=== PATIENT | male | born 1930 | race Caucasian/White ===

== ENCOUNTER 2018-03-19 08:05 | Inpatient (IN) | payer MEDICARE, OTHER ==
[~2018-03-19] VITALS: Ht 170.2 cm; Wt 92.1 kg
[~2018-03-19 08:05] MED LIST: COREG6.25 MG PO; FLOMAX0.4 MG PO; GLUCOPHAGE500 MG PO; LISINOPRIL20 MG PO; OMEPRAZOLE 20 M20 M1 PO; ZOCOR20 MG PO
[2018-03-19] MEDS ORDERED: ASPIRIN325 PO (08:18)
[2018-03-19] MEDS ORDERED: PERCOCET PO (08:18)
[2018-03-19] MEDS ORDERED: PROCTOSOL-HC28.35 GM TOP (08:19)
[2018-03-19] MEDS ORDERED: IBUPROFEN 400400 M2 PO (08:20)
[2018-03-19] MEDS ORDERED: ZANTAC 150MG T150 MG PO (08:20)
[2018-03-19] MEDS ORDERED: PIOGLITAZONE15 MG (08:20)
[2018-03-19 08:28] LABS: ABSOLUTE EOSINOPHILS 0.1 thou/uL (0.0-0.7); ABSOLUTE LYMPHOCYTES 1.7 thou/uL (0.8-5.3); ABSOLUTE MONOCYTES 1.1 thou/uL (0.0-1.2); ABSOLUTE NEUTROPHILS 8.3 thou/uL (1.6-8.1); BASOPHILS 0.4 %; EOSINOPHILS 0.8 %; HEMATOCRIT 40.8 % (42.0-52.0); HEMOGLOBIN 13.3 gm/dL (14.0-18.0); MCH 30.6 pg (26.0-34.0); MCHC 32.7 g/dL (28.0-37.0); MCV 93.4 fL (80.0-100.0); MONOCYTES 9.6 %; MPV 7.7 fl. (7.2-11.1); NUCLEATED RBCS 0 /100WBC; PLATELET COUNT* 144 thou/uL (150-400); POLYS 74.2 %; RBC 4.36 mil/uL (4.50-6.00); WBC 11.2 thou/uL (4.0-11.0)
[2018-03-19] MEDS ORDERED: CENTRUM SILVER1 EAC2 PO (08:31)
[2018-03-19] MEDS ORDERED: FIBRICOR35 MG PO (08:32)
[2018-03-19 08:37] LABS: ANION GAP 10 mmol/L (7-16); BUN 28 mg/dL (7-18); CALCIUM 8.6 mg/dL (8.5-10.1); CHLORIDE 102 mmol/L (98-107); CO2 25 mmol/L (21-32); CREATININE 1.4 mg/dL (0.6-1.3); GLUCOSE 127 mg/dL (70-99); POTASSIUM 4.2 mmol/L (3.5-5.1); SODIUM 137 mmol/L (136-145)
[2018-03-19 08:47] LABS: APTT 28.3 Seconds (25.0-31.3); INR 1.1; PROTIME 10.5 Seconds (9.20-11.50)
[2018-03-19 08:49] LABS: ALBUMIN 3.4 g/dL (3.4-5.0); ALKALINE PHOSPHATASE 41 U/L (46-116); CK-MB MASS < 0.5 ng/mL (<0.5-3.6); LIPASE 113 U/L (73-393); MAGNESIUM 1.4 mg/dL (1.8-2.4); NT-PRO BRAIN NAT PEPTIDE 91 pg/mL (<300); SGOT 16 U/L (15-37); SGPT 18 U/L (30-65); TOTAL BILIRUBIN 0.4 mg/dL (<0.1-1.0); TOTAL PROTEIN 6.6 g/dL (6.4-8.2); TROPONIN-I LEVEL <0.06 ng/mL (<0.06)
--- NOTE | 2018-03-19 11:37 | EKG ---
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 : 1930 Requested By: Kashmir Ayala Order Number: [id number] MD: Destin Graham Measurements Intervals [place] Rate: 96 P: 216 PA: 198 QRS: 100 QRSD: 130 T: 179 QT: 354 QTc: 448 Interpretive Statements Sinus or ectopic atrial rhythm Atrial premature complex incomplete RBBB Probable lateral infarct, age indeterminate Compared to ECG 11/22/2016 12:15:20 Ectopic atrial rhythm now present Atrial premature complex(es) now present Intraventricular conduction delay now present Electronically Signed On 03-19-2018 11:36:57 CDT by Destin Graham [email or web address] <ELECTRONICALLY SIGNED> By: Destin Graham MD, [facility] 03/19/18 1136 [id number] Destin Graham MD, [facility] /EPI
[2018-03-19 12:50] VITALS: BP 115/81
[2018-03-19] MEDS ORDERED: TYLENOL325 MG PO (13:48)
[2018-03-19 13:55] VITALS: BP 142/64
--- NOTE | 2018-03-19 13:59 | NUR ---
PT ADMITTED AROUND 1300 PT IS ALERT AND ORIENTED X 4 PT DENIES PAIN STATES MORE SORENESS DISCOMFORT PT DENIES SOA ON 2L/NC, PT IS UP WITH ASSIST X 1 WITH CANE AND O2 TO BEDSIDE COMMODE PT IS A FALL RISK BED ALARM IS ON, VSS, PT HAS FAMILY IN ROOM PT IS PLEASANT AND COOPERATIVE, PT ARMS HAVE TREMORS, WILL CONTINUE TO MONITOR
[2018-03-19 16:23] VITALS: BP 149/71
[2018-03-19 20:00] VITALS: BP 120/63
[2018-03-20] VITALS: BP 113/60
[2018-03-20 04:00] VITALS: BP 111/60
--- NOTE | 2018-03-20 05:31 | NUR ---
PATIENT RESTED IN BED. EKG DONE, EKG STATES ACUTE MD. PATIENT COMPLAINED OF CHEST PAIN, DOCTOR ANNE NOTIFIED. DOCTOR ANNE ORDERED SUBLIGINAL NITRO AND A CARDIO CONSULT. NITRO GIVEN, AFTER ONE TABLET, PAIN WAS COMPLETLY RELIEVED. CARDIOLOGY WAS NOTIFIED OF CONSULT. DOCTOR NORIEGA NOTIFIED, THE DOCTOR ORDERED LOVENOX, AND NITRO, SEE ORDERS. PATIENT LATER COMPLAINED OF AB PAIN, TREATED WITH TYLENOL. PAIN WAS COMPLETLY RELIEVED. PATIENT IS NPO DUE TO CARDIOLOGY ORDER. PATIENT VITALS ARE STABLE.
--- NOTE | 2018-03-20 06:03 | NUR ---
CALL TO DOCTOR FULBRIGHT REGARDING MAG LEVEL AND PATIENT REQUEST FOR STOOL SOFTENER. WAITING FOR RESPONSE.
--- NOTE | 2018-03-20 06:41 | NUR ---
DOCTOR RETURNED CALL, SEE ORDERS. AND MARIE ORDERED.
[2018-03-20 09:00] VITALS: BP 131/71
[2018-03-20 12:00] VITALS: BP 105/51
[2018-03-20 13:36] LABS: ABSOLUTE LYMPHOCYTES 1.3 thou/uL (0.8-5.3); ABSOLUTE MONOCYTES 1.1 thou/uL (0.0-1.2); ABSOLUTE NEUTROPHILS 5.1 thou/uL (1.6-8.1); BASOPHILS 0.4 %; EOSINOPHILS 0.4 %; HEMATOCRIT 40.4 % (42.0-52.0); HEMOGLOBIN 13.3 gm/dL (14.0-18.0); LYMPHOCYTES 17.8 %; MCH 31.1 pg (26.0-34.0); MCHC 32.8 g/dL (28.0-37.0); MCV 94.6 fL (80.0-100.0); MPV 8.4 fl. (7.2-11.1); NUCLEATED RBCS 0 /100WBC; PLATELET COUNT* 132 thou/uL (150-400); POLYS 67.4 %; RBC 4.28 mil/uL (4.50-6.00); RDW-CV 13.9 % (10.5-14.5); WBC 7.6 thou/uL (4.0-11.0)
[2018-03-20 13:42] LABS: CALCIUM 9.3 mg/dL (8.5-10.1); CREATININE 1.4 mg/dL (0.6-1.3); POTASSIUM 4.1 mmol/L (3.5-5.1)
[2018-03-20 14:30] LABS: URINE BILIRUBIN NEGATIVE (Negative); URINE BLOOD NEGATIVE (Negative); URINE CLARITY CLEAR; URINE COLOR YELLOW; URINE GLUCOSE-RANDOM NEGATIVE (Negative); URINE KETONES NEGATIVE (Negative); URINE LEUKOCYTES TRACE (Negative); URINE NITRITE NEGATIVE (Negative); URINE PROTEIN NEGATIVE (Negative); URINE SPECIFIC GRAVITY 1.015 (1.005-1.030); URINE UROBILINOGEN 0.2 E.U./dl (0.2-1.0)
--- NOTE | 2018-03-20 14:45 | EKG ---
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: : 1930 Requested By: Kashmir Ayala Order Number: [id number] MD: Destin Graham Measurements Intervals [place] Rate: 101 P: 16 PA: 195 QRS: 74 QRSD: 107 T: 20 QT: 331 QTc: 429 Interpretive Statements Sinus tachycardia Atrial premature complexes Sinus pause incomplete RBBB nonspecific st changes Baseline wander in lead(s) V6 Compared to ECG 03/19/2018 08:09:29 Sinus pause or arrest now present Myocardial infarct finding still present Electronically Signed On 03-20-2018 14:45:34 CDT by Destin Graham [email or web address] <ELECTRONICALLY SIGNED> By: Destin Graham MD, [facility] 03/20/18 1445 1407 1407 Destin Graham MD, [facility] /EPI
[2018-03-20 14:48] LABS: BACTERIA 1-9 Few /HPF (None Seen); URINE RBC 0-2 Rare /HPF (0-2)
[2018-03-20 14:49] LABS: AMORPHOUS URATES Few /LPF (None Seen); CASTS None Seen /LPF (None Seen); SQUAMOUS 0-3 Few /LPF (0-3); URINE WBC 0-5 Rare /HPF (0-5)
--- NOTE | 2018-03-20 14:51 | EKG ---
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: [facility] : 1930 Requested By: Kashmir Ayala Order Number: [id number] Reading MD: Destin Graham Measurements Intervals [place] Rate: 83 P: 30 CA: 200 QRS: 78 QRSD: 114 T: 34 QT: 357 QTc: 420 Interpretive Statements Sinus rhythm Abnormal R-wave progression, early transition Inferior infarct Lateral leads are also involved Compared to ECG 03/19/2018 08:09:29 Atrial premature complex(es) no longer present Myocardial infarct finding still present Electronically Signed On 03-20-2018 14:51:34 CDT by Destin Graham [email or web address] <ELECTRONICALLY SIGNED> By: Destin Graham MD, [facility] 03/20/18 1451 58 58 Destin Graham MD, [facility] /EPI
[2018-03-20 16:00] VITALS: BP 130/68
--- NOTE | 2018-03-20 16:15 | NUR ---
ASSUMED PT CARE AT 0700 PT IS ALERT AND ORIENTED X 4 PT IS UNSTEADY ON FEET AND IS ON 2L/NC PT EDUCATED TO USE BEDSIDE COMMODE FOR TOLIETING PT AND FAMILY STATES UNDERSTANDING, PT DENIES PAIN, CARDIOLOGY SAW PT ORDERED ECHO FOR TOMORROW, PT IS SA ON THE MONITOR, UROLOGY CONSULTED FOR POSSIBLE KIDNEY STONE NEW ORDERS FOR UA FLOMAX STRAIN URINE AND KUB ORDERED, UA OBTAINED AND URINE IS STRAINED, PT AROUND 1600 C/O STOMACH UPSET PT DENIES PAIN INCLUDING CHEST PAIN PT STATES IT'S NAUSEA GAVE ZOFRAN, WILL CONTINUE TO MONITOR
--- NOTE | 2018-03-20 16:18 | CON ---
[facility] [address] [place] [address] CONSULTATION Name: SULMA GARCIA Room: [address] IN [facility].#: [id number] Admission: 03/19/18 Attend Phys: Reid Holden Discharge: Date of : 10/17/[birth year] Report #: [id number] THIS REPORT FOR: //name// CC: NATI Casas DATE OF SERVICE: 03/20/2018 HISTORY OF PRESENT ILLNESS: The patient is an 87-year-old white male who I was asked to see in the hospital today after he complained of chest pain. The old records are not available on the patient. He actually was admitted here in 11/2016 with dizziness and kidney stone. He does state that he has had a long history of hypertension, diabetes and hyperlipidemia. He actually saw a telecommunications administrator in [place], [place] a couple of years ago and apparently was placed on Coreg, which he still takes twice a day. The patient is not very active because of his age. He has to use a cane. He was brought to the Emergency Room yesterday morning with a constant, sharp chest pain. There is no radiation of the pain. It is worse when he took a deep breath or cough. He denied the pain radiating to his arms or jaw. He denies any associated shortness of breath, diaphoresis or nausea. He denied any recent pain being related to swallowing her food. He had no blood in stool. He denies any recent fever. He denies recent trauma to his chest or rash. He denies any exertional dyspnea. He does note occasional flutter in his chest. He has had no syncope. He has had no edema. PAST MEDICAL HISTORY: Otherwise significant for bilateral knee surgery, cholecystectomy, kidney stone removal, cataract extraction, hypertension, diabetes, hyperlipidemia. CURRENT MEDICATIONS: Consist of aspirin, fenofibrate, omeprazole, simvastatin, metformin, lisinopril, carvedilol. He previously had been on Flomax, Actos. ALLERGIES: He has no known drug allergies. FAMILY HISTORY: Negative for heart disease. SOCIAL HISTORY: He is . He and his live in [place], [place]. 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 Quit smoking years ago. Occasionally drinks alcohol. REVIEW OF SYSTEMS: He has had no history of stroke, asthma, peptic ulcer disease, liver disease, cancer, psychiatric illness. PHYSICAL EXAMINATION: GENERAL: Revealed an elderly slow moving white [place] [address] CONSULTATION Name: SULMA GARCIA Room: [address]#: [id number] Admission: 03/19/18 Attend Phys: Reid Holden Discharge: Date of : [birth year]17[birth year] Report #: [id number]. VITAL SIGNS: He had a blood pressure of 130/70, his pulse is 90, he is afebrile. HEENT: He is anicteric. Conjunctivae pink. Mucous members appear dry. NECK: Veins nondistended. No carotid bruits. Neck is supple. CHEST: Clear to auscultation. CARDIOVASCULAR: Regular rate and rhythm, no murmur or rub. ABDOMEN: Soft, nontender. EXTREMITIES: Had no edema. Dorsalis pedis pulse 2+ bilaterally. SKIN: Warm, dry. NEUROLOGIC: Nonfocal. LYMPH: No adenopathy. MUSCULOSKELETAL: No joint effusion. LABORATORY DATA: He had an ECG done by paramedics that showed a sinus rhythm with occasional PVCs including a pattern of bigeminy. He appeared to have a right bundle branch block. ECG after his arrival here to [facility] yesterday morning showed a sinus rhythm, possible previous inferior infarction with a right bundle branch block. Last night, the patient had another ECG that showed PVCs. There did appear to be some ST-segment elevation in lead 2, but no reciprocal ST-segment changes. His workup, he had a previous echocardiogram here at [facility] in 11/2016 that showed a normal ejection fraction, left ventricular hypertrophy, mild tricuspid insufficiency with severe pulmonary hypertension, PA pressure of 65 mmHg. His workup in the emergency room last night, he had portable chest x-ray that showed atelectasis, otherwise unremarkable. He underwent a CT scan of the abdomen without contrast because of his history of kidney stones that showed small renal stones, some pericardial effusion. His lab work, sodium 137, BUN 28, creatinine 1.4. His troponin, he has 3 sets, all 0.06. White blood cell count 11.2, hemoglobin 13.3. IMPRESSION AND RECOMMENDATIONS: 1. Chest pain. Atypical for angina. The patient does have risk factors. Symptoms do not suggest angina. ECG suggests a previous inferior infarction. Pericardial effusion noted on a CT scan. I do not hear a rub. Possible pericarditis. In light of his advanced age, recommend a conservative approach. I would recommend an echocardiogram. 2. Hypertension. The patient is on an HILL inhibitor and beta feliz. 3. Diabetes. 4. Hyperlipidemia. The patient is on a statin drug. 5. Chronic kidney disease. 6. History of kidney stone. <ELECTRONICALLY SIGNED> By: Nati Graham MD, [facility] 03/20/18 1618 0850 [id number] Graham MD, [facility] /nt
[2018-03-20 20:00] VITALS: BP 153/77
[2018-03-21 00:46] VITALS: BP 154/74
--- NOTE | 2018-03-21 02:42 | NUR ---
CALL TO DOCTOR SUDHOLT REGARDING PATIENT ELEVATED BLOOD SUGAR, SEE ORDERS.
--- NOTE | 2018-03-21 03:11 | NUR ---
PATIENT RESTED IN BED, NO ACUTE CHANGES. PATIENT DENIES PAIN, PATIENT DID NOT SHOW SIGNS OF DISTRESS. FALL PRECAUTIONS IN PLACE, BED ALARM ON, CALL LIGHT WITHIN REACH. NO STONES WERE NOTED IN URINE.
[2018-03-21 04:20] VITALS: BP 125/72
--- NOTE | 2018-03-21 06:21 | NUR ---
DOCTOR ALLEN NOTIFIED OF MAG AND SODIUM LEVEL, NO NEW ORDERS.
[2018-03-21 08:00] VITALS: BP 124/66
[2018-03-21 12:00] VITALS: BP 102/66
--- NOTE | 2018-03-21 13:23 | 2DMMODE ---
[place] [address] 2 D/M-MODE ECHOCARDIOGRAM Name: SULMA GARCIA Room: [address] IN [facility]#: [id number] Admission: 03/19/18 Attend Phys: Austyn Casas Discharge: Date of : 10/17/[birth year] Date of Service: 03/21/18 1323 Report #: [id number] THIS REPORT FOR: //name// APPROVED REPORT Study performed: 03/21/2018 11:44:34 EXAM: Comprehensive 2D, Doppler, and color-flow Echocardiogram Patient Location: In-Patient Room #: 218 Status: routine BSA: 2.05 HR: 74 bpm BP: 124/66 mmHg Rhythm: NSR Other Information Study Quality: Good Indications Abnormal ECG Chest Pain 2D Dimensions LVEF(%): 68.44 (>50%) IVSd: 10.98 (7-11mm) LVOT Diam: 20.58 (18-24mm) LVDd: 50.44 mm PWd: 10.21 (7-11mm) Ascending Ao: 32.88 (22-36mm) LVDs: 31.06 (25-40mm) Aortic Root: 31.65 mm Sanchez's LVEF: 68.44 % Aortic Valve AoV Peak Davidson.: 1.22 m/s AO Peak Gr.: 5.91 mmHg LVOT Max P.46 mmHg AO Mean Gr.: 3.30 mmHg LVOT Mean P.01 mmHg LVOT Max V: 1.27 m/s AO V2 VTI: 22.33 cm LVOT Mean V: 0.78 m/s NACHO (VTI): 3.97 cm2 LVOT V1 VTI: 26.67 cm Mitral Valve E/A Ratio: 0.77 MV Decel. Time: 236.20 ms MV E Max Davidson.: 0.75 m/s MV PHT: 68.50 [place] [address] 2 D/M-MODE ECHOCARDIOGRAM Name: SULMA GARCIA Room: [address] IN [facility]#: [id number] Admission: 03/19/18 Attend Phys: Austyn Casas Discharge: Date of : 10/17/[birth year] Date of Service: 03/21/18 1323 Report #: [id number] MVA (PHT): 3.21 cm2 TDI E/Medial E': 10.71 Medial E' Davidson.: 0.07 m/s Pulmonary Valve PV Peak Davidson.: 0.97 m/s PV Peak Gr.: 3.80 mmHg Tricuspid Valve TR Peak Gr.: 33.28 mmHg RVSP: 38.00 mmHg Left Ventricle The left ventricle is normal size. There is normal LV segmental wall motion. There is normal left ventricular wall thickness. Left ventricular systolic function is normal. The left ventricular ejection fraction is within the normal range. LVEF is 60-65%. Grade I - abnormal relaxation pattern. Right Ventricle The right ventricle is normal size. The right ventricular systolic function is normal. Atria The left atrium size is normal. The right atrium size is normal. Aortic Valve Mild aortic valve sclerosis. No aortic regurgitation is present. There is no aortic valvular stenosis. Mitral Valve The mitral valve is normal in structure. There is no mitral valve regurgitation noted. No evidence of mitral valve stenosis. Tricuspid Valve The tricuspid valve is normal in structure. Trace tricuspid regurgitation. The RVSP is 35-40 mmHg. Pulmonic Valve The pulmonary valve is normal in structure. There is no pulmonic valvular regurgitation. Great Vessels The aortic root is normal in size. IVC is normal in size and collapses with >50% [place] [address] 2 D/M-MODE ECHOCARDIOGRAM Name: SULMA GARCIA Room: [address]#: [id number] Admission: 03/19/18 Attend Phys: Austyn Casas Discharge: Date of : 10/17/[birth year] Date of Service: 03/21/18 1323 Report #: [id number] Pericardium There is no pericardial effusion. <Conclusion> The left ventricle is normal size. There is normal left ventricular wall thickness. Left ventricular systolic function is normal. The left ventricular ejection fraction is within the normal range. LVEF is 60-65%. Grade I - abnormal relaxation pattern. The right ventricle is normal size. The left atrium size is normal. Mild aortic valve sclerosis. No aortic regurgitation is present. There is no aortic valvular stenosis. The mitral valve is normal in structure. The tricuspid valve is normal in structure. Trace tricuspid regurgitation. The RVSP is 35-40 mmHg. IVC is normal in size and collapses with >50% inspiration There is no pericardial effusion. There is normal LV segmental wall motion. <ELECTRONICALLY SIGNED> By: Michel De Leon MD, FACC 03/21/18 1323 1323 1323 Michel De Leon MD, FACC /INF
[2018-03-21 16:00] VITALS: BP 134/56
--- NOTE | 2018-03-21 16:27 | NUR ---
Pt is A&O. Resides at home with his . Independent, completes most ADLs. Pt uses a cane for mobility. Supportive family that is involved in POC. No hx of HH or SNF. Goal is to return home at nm. Following for disposition.
--- NOTE | 2018-03-21 18:03 | NUR ---
ASSUMED CARE OF PT AT 0730. PT CONTINUES TO BE A&O X4 CALM AND COOPERATIVE. PT VSS ON 3L VIA NC AND PT TRACING SA ON THE MONITOR. PT HAS BEEN AMBULATING IN HIS ROOM WITH GAIT BELT AND WALKER. PT VOIDING VIA TOIELT AND URINE IS BEING STRAINED WITH NO ABNORMAL FINIDINGS TODAY. PT HAS HAD A GOOD APPETITE AND HAS ATE GREATER THAN 90% OF ALL MEALS TODAY. PT HAD SOME C/O A HEADACHE EARLIER TODAY AND PRN TYLENOL WAS ADMINSITERD PER DEC. PT REPORTED EFFECTIVE REDUCTION IN HIS PAIN TO A TOLERABLE LEVEL. LEFT AC IV SL AND FLUSHES WITHOUT RESISTANCE. ACCUCHECKS TODAY HAVE BEEN IN THE 160'S TO 180'S. PT CURRENTLY RESTING IN RECLINER WATCHING TV. NURSING WILL CONTINNUE TO MONITOR.
[2018-03-21 20:00] VITALS: BP 99/61
[2018-03-22] VITALS (7 sets, daily range): BP systolic 95–136; BP diastolic 56–77
--- NOTE | 2018-03-22 05:16 | NUR ---
PATIENT RESTED IN BED, NO ACUTE CHANGES. PATIENT DID NOT SHOW SIGNS OF DISTRESS. PATIENT COMPLAINED OF PAIN, RELIEVED WITH TYLENOL. FALL PRECAUTIONS IN PLACE, BED ALARM ON, CALL LIGHT WITH REACH, HOURLY ROUNDING OBSERVED.
[2018-03-22 06:03] LABS: CALCIUM 9.4 mg/dL (8.5-10.1); CREATININE 1.6 mg/dL (0.6-1.3); POTASSIUM 5.1 mmol/L (3.5-5.1)
[2018-03-22 10:38] LABS: ABSOLUTE BASOPHILS 0.1 thou/uL (0.0-0.2); ABSOLUTE EOSINOPHILS 0.1 thou/uL (0.0-0.7); ABSOLUTE LYMPHOCYTES 1.7 thou/uL (0.8-5.3); ABSOLUTE MONOCYTES 0.9 thou/uL (0.0-1.2); ABSOLUTE NEUTROPHILS 6.4 thou/uL (1.6-8.1); BASOPHILS 0.8 %; EOSINOPHILS 1.5 %; HEMATOCRIT 39.4 % (42.0-52.0); LYMPHOCYTES 18.8 %; MCH 31.1 pg (26.0-34.0); MCHC 32.9 g/dL (28.0-37.0); MCV 94.4 fL (80.0-100.0); MONOCYTES 9.9 %; MPV 9.1 fl. (7.2-11.1); NUCLEATED RBCS 0 /100WBC; PLATELET COUNT* 152 thou/uL (150-400); RBC 4.17 mil/uL (4.50-6.00); RDW-CV 13.6 % (10.5-14.5); WBC 9.2 thou/uL (4.0-11.0)
--- NOTE | 2018-03-22 13:22 | NUR ---
ASSUMED CARE OF PATIENT THIS AM AT 0730. PATIENT IS ALERT AND ORIENTED X 4. HE C/O CONSTIPATION THIS AM. PATIENT'S URINE OUTPUT HAS BEEN LOW. NO STONES NOTED AT THIS TIME. PATIENT C/O A HEADACHE THIS AM. DR IN TO ROUND AND UROLOGY IN TO SEE PATIENT. ORDERS WRITTEN FOR TESTS AND MEDICATIONS. PATIENT TAKEN TO RADIOLOGY PER W/C FOR US AND RETURNED. IV FLUIDS STARTED PER ORDER WHE HE RETURNED TO THE ROOM. PATIENT ASSISTED UP TO THE BATHROOM TO VOID. POST VOID RESIDUAL WAS 108 ML. TELE SHOWS SR WITH NONCONDUCTED PACS. FAMILY IS IN AT THE BEDSIDE. PATIENT MEDICATED FOR CONSTIPATION ORDERED. WILL CONTINUE TO MONITOR.
[2018-03-23 03:51] VITALS: BP 119/61; BP 137/82
--- NOTE | 2018-03-23 05:01 | NUR ---
PATIENT RESTED IN BED, NO ACUTE CHANGES. PATIENT DID NOT SHOW SIGNS OF DISTRESS. PATIENT HAD FREQUENT URINATION, NO SIGN OF STONE. FALL PRECAUTIONS IN PLACE, BED ALARM ON, CALL LIGHT WITHIN REACH, HOURLY ROUNDING OBSERVED.
--- NOTE | 2018-03-23 05:03 | NUR ---
PATIENT IS CURRENTLY NPO.
[2018-03-23 08:00] VITALS: BP 119/71
--- NOTE | 2018-03-23 09:51 | NUR ---
Pt to surgery today, family in room.
[2018-03-23 10:39] VITALS: BP 119/71
--- NOTE | 2018-03-23 12:00 | NUR ---
ASSUMED CARE OF PT AFTER REPORT AT 0730. PT IS ALERT AND ORIENTED X4. VITAL SIGNS TAKEN AND RECORDED. PHYSICAL ASSESSMENT COMPLETED AND CHARTED. PT ON O2 VIA NC AT 3LPM WITH 95% O2 SAT. PT IS ON SA BBB ON TELE. UP WITH STANBY ASSIST. MAINTAINED ON NPO FOR SCHEDULED SURGERY. STILL TO SECURE CONSENT FOR SURGERY- RELATIVES WANT TO TALK TO THE PHYSICIAN FIRST AND NOTIFIED PACU ABOUT IT. CALL LIGHT WITHIN REACH.PRE-OP CARE RENDERED. TO OR PER TECH VIA BED AT 1130.
[2018-03-23 12:11] VITALS: BP 129/79
[2018-03-23] MEDS ORDERED: LEVAQUIN 750 M750 MG PO (13:52)
--- NOTE | 2018-03-23 14:55 | NUR ---
PATIENT TRANSFERED TO ICU ROOM 2. REPORT CALLED TO YUE CLARK. REPORTING NO QUESTIONS OR CONCERNS AT THIS TIME. FAMILY NOTIFIED.
[2018-03-23 15:00] VITALS: BP 145/78
--- NOTE | 2018-03-23 15:30 | NUR ---
PT CAME OVER FROM PACU IN BILATERAL SOFT WRIST RESTRAINTS. PT DROWSY. PT HAS BLANK STARE. CALLED UROLOGY GOT ORDER FOR URRUTIA CATHETER. PT STATED HE NEEDED TO VOID. PT ABLE TO VOID IN URINAL. URRUTIA CATHETER NOT PLACED PT ABLE TO COMMUNICATE BATHROOM NEEDS. VSS. 4L NC. BIGEMENY, WITH 1ST DEGREE AV BLOCK.
--- NOTE | 2018-03-23 17:00 | NUR ---
RESTRAINTS DC'D AT 1600. PT A/O X'S 4. PT ABLE TO COMMUNICATE WHY HE CAME INTO THE HOSPITAL. PT FOLLOWING COMMANDS, APPROPRIATE BEHAVIOR. VSS. TITRATED TO 2L NC SATTING AT 97%. BLOOD GLUCOSE 106. PT TOLERATING LIQUIDS. PO CARVEDILOL ADMINISTERED PER DEC. NOTIFIED AND STATUS CHANGED TO TELEMETRY.
--- NOTE | 2018-03-23 17:55 | NUR ---
RECEIVED REPORT FROM PACU AT 1700. PT TRANSFERRED FROM PACU AT 1720. PT IS ALERT AND ORIENTED X4.CARDIAC MONITORING IN PLACE. PT IS ON SR BBB ON TELE. PT IS ON 02 VIA NC 2LPM. UP WITH STANDBY ASSIST. DENIES ANY PAIN OR COMAPLAIN AT THIS TIME. CALL LIGHT WITHIN REACH.
[2018-03-23 19:25] VITALS: BP 139/77
--- NOTE | 2018-03-23 23:30 | NUR ---
ASSUMED CARE OF PT AT 1900. PT IS ALERT AND ORIENTED. VSS. PERRLA. NO COMPLAINTS OF PAIN. URINE IS PINK. PT IS VOIDING. PT IS IN SINUS ARRYTHMIA. PT IS SLEEPING COMFORTABLY IN BED. RESPIRATIONS ARE EVEN AND NONLABORED. WILL CONTINUE TO MONITOR PT.
[2018-03-24] VITALS: BP 119/61
[2018-03-24 04:00] VITALS: BP 124/72
[2018-03-24 05:19] LABS: CALCIUM 8.8 mg/dL (8.5-10.1); CREATININE 1.3 mg/dL (0.6-1.3); POTASSIUM 4.1 mmol/L (3.5-5.1)
[2018-03-24 08:00] VITALS: BP 140/71
--- NOTE | 2018-03-24 10:00 | NUR ---
ASSUMED CARE OF PT AFTER REPORT AT 0730. PT ALERT & ORTIENTED X4. VSS. PHYSICAL ASSESSMENT COMPLETED AND CHARTED. RECEIVED PT ON 02 VIA NASAL CANNULA. TRIGEMINY BBB ON TELE. UP WITH 1 ASSIST. DISCONTINUED O2 WITH 95% 02 SAT. DENIES PAIN OR COMPLAIN AT THIS TIME. CALL LIGHT WITHIN REACH. WILL CONTINUE TO MONITOR PT.
[2018-03-24] MEDS ORDERED: COLACE100 MG PO (10:52)
[2018-03-24] MEDS ORDERED: MIRALAX17 GM PO (10:56)
[2018-03-24 11:01] VITALS: BP 140/71
[2018-03-24 12:03] VITALS: BP 153/71
--- NOTE | 2018-03-30 11:00 | OP ---
[facility] [address] [place] [address] OPERATIVE REPORT Name: SULMA GARCIA Room: [address]#: [id number] Admission: 03/19/18 Attend Phys: Reid Holden Discharge: 03/24/18 Date of : [birth year] Report #: [id number] THIS REPORT FOR: //name// CC: [facility] Destin Casas DATE OF SERVICE: 03/23/2018 PREOPERATIVE DIAGNOSIS: Right distal ureteral stones. POSTOPERATIVE DIAGNOSES: Right distal ureteral stones and bladder lesions. PROCEDURES: Cystourethroscopy, right retrograde pyelogram, right ureteroscopy, laser lithotripsy, basket extraction of stones, right ureteral stent placement and bladder biopsy. SURGEON: Erika Lopez M.D. ANESTHESIA: General. ESTIMATED BLOOD LOSS: None. COMPLICATIONS: None. SPECIMENS: Stone and bladder biopsy from right lateral wall and dome. INDICATIONS FOR PROCEDURE: The patient is an 87-year-old male with a right distal ureteral stone that has failed to pass. His creatinine has remained slightly elevated. Options were discussed and he elects to proceed with intervention. Risks of procedure were discussed, including but not limited to infection; bleeding; injury to the urethra, bladder, ureter; need for secondary procedures; stent pain and cardiopulmonary complications. He voiced understanding and wished to proceed. DESCRIPTION OF PROCEDURE: After informed consent was obtained, the patient was taken back to the operating suite and placed supine. After induction of general anesthesia, he was placed in dorsal lithotomy position. Genitalia were prepped and draped in a standard fashion. Rigid cystoscopy was performed. He had a normal anterior urethra. 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 Bladder was systematically inspected. Ureteral orifices were normal. He did have a couple tiny stone debris at the base of his bladder, but was not big enough to be the stone seen on CAT scan. He had some trabeculations as well as a few small diverticula. He was noted to have a very tiny raised erythematous lesion at the dome and he also had a somewhat papillary appearing tiny lesion on the right lateral bladder wall. These looked abnormal [place] [address] OPERATIVE REPORT Name: SULMA GARCIA Room: [address]#: [id number] Admission: 03/19/18 Attend Phys: Reid Holden Discharge: 03/24/18 Date of : 10/17/[birth year] Report #: [id number] warrant biopsy, but elected to treat the stone first. Retrograde was performed on the right, which revealed a filling defect just above the UVJ, consistent with stone and proximal hydroureter. Sensor wire was threaded up into the right kidney without difficulty. The bladder was drained, the scope was removed. The UO was dilated over the wire with the 11-Ukrainian portion of the ureteral access sheath to be able to get inside the UO. The rigid ureteroscope was then threaded into the UO and there was a tight spot just below the level of the stone, but it would accommodate the scope. Two stones were seen just above this that were irregular in shape. These were lasered with 200 micron laser fiber and the pieces were basketed with the 0 tip nitinol basket and deposited in the bladder. Once all stone fragments were removed, the scope was removed. Dual-lumen catheter was used to perform retrograde. This revealed mild hydroureter and hydronephrosis. Wire was left in place and backloaded through the cystoscope and a 6-Ukrainian x 26 cm double-J stent was threaded over the wire. Good curl was seen within the upper pole and good curl was seen within the bladder. Then changed the irrigation fluid to water and performed biopsy of the 2 lesions previously mentioned with the flexible biopsy forceps. These were very small. The areas were then thoroughly cauterized with the Bugbee cautery. Hemostasis remained excellent. The bladder was drained and refilled and reinspected and hemostasis remained excellent. Any stone pieces were drained out of the bladder. The biopsies had already been passed off the table in separate cups. Once all stone pieces were drained, the bladder was drained one final time. Scope was removed and 5 mL of lidocaine jelly was placed per urethra for local anesthesia. He was awoken, extubated and taken to recovery in satisfactory condition. He will be admitted back to the floor and dismissed, hopefully, tomorrow if he is doing well. Plan will be to remove the stent in 1 week and discuss pathology at that appointment. <ELECTRONICALLY SIGNED> By: Erika Lopez MD 03/30/18 1100 1336 [id number] Lopez MD /nt
--- NOTE | 2018-04-14 11:08 | PATH ---
[address] [address] PATHOLOGY RPT PROCEDURE Name: SULMA GARCIA Room: [address] IN .R.#: [id number] Admission: 03/19/18 Date of : 10/17/30 Discharge: 03/24/18 Report #: [id number] Path Case #: [id number] [facility] Accession Number: [id number] . 01 Material submitted: . PART A: BIOPSY, RIGHT LATERAL BLADDER WALL PART B: BLADDER DOME BIOPSY PART C: RIGHT URETERAL CALCULI . 01 Clinical history: . Right ureteral calculi and bladder lesions . 02 Diagnosis: A. 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 . B. Bladder dome biopsy: - Moderate acute and chronic cystitis, negative for high grade dysplasia. . C. Right ureteral calculi (gross diagnosis): - Calculi, submitted for chemical analysis with results to follow as an addendum. . (BRIAN:mml; 03/24/2018) QL/03/24/2018 . 02 Addendum: . Outside report received from [facility], [address] [place] [address], [id number], on case [id number], labeled with their number [id number], dated 03/30/2018. . Stone Analysis Report Stone Composition Composition (percent) Calcium Phosphate Carbonate 78 Calcium Oxalate Monohydrate 2 Organic Material 20 . TOTAL 100 . The stone is submitted in fragmented form with no discernible core. It is brown and kelly cream in color, weighs approximately 10 milligrams and displaces less than 0.1 cc of distilled water. THE CALCULUS IS COMPOSED OF A MIXTURE OF CALCIUM OXALATE MONOHYDRATE (WHEWELLITE), ORGANIC MATERIAL AND CALCIUM PHOSPHATE CARBONATE (CARBONATE-APATITE). . [place] [address] PATHOLOGY RPT PROCEDURE Name: SULMA GARCIA Room: [address]#: [id number] Admission: 03/19/18 Date of : 10/17/30 Discharge: 03/24/18 Report #: [id number] Path Case #: [id number] . Steven Hays MD [employer] . A complete copy of the report is on file. . Technical and Professional services for the special studies performed by [facility], [address] [place] [id number]. . ([facility] 04/14/2018) . AZ[facility]/04/14/2018 Addendum Electronically Signed by Alon Hansen MD, Pathologist . 02 Electronically signed: . Alon Hansen MD, Pathologist NPI- [id number] . 01 Gross description: . A. Received in formalin labeled "Sulma Mich, right lateral bladder wall biopsy" and consists of a 0.2 cm ngo-kelly soft tissue fragment which is entirely submitted as A1 for serial multiple step sections. . B. Received in formalin labeled "Sulma Mich, bladder dome biopsy" and consists of a 0.2 cm soft pink tissue fragment which is entirely submitted as B1 for serial multiple step sections. . C. Received in formalin labeled "Sulma Mich, right ureteral calculi" and consists of 3 brown calculi ranging in size from 0.1 cm-0.3 cm. The specimen is forwarded for chemical analysis. (ROME; 03/23/2018) JBR/JBR . 02 Pathologist provided ICD-10: N30.00, N30.20 . 02 CPT . 082310, 536113 Performed at: 01 [facility] [address] [place] [address] [address], [place], [place] [id number] MD Suyra Mcgregor MD Phone: [phone] Performed at: 02 [facility] [address], [place] [id number] MD Alon Hansen MD Phone: [phone]
== END 2018-03-24 12:32 | disposition home or self-care (01) | DRG 669 ==
LOC: M.ERS 08:05 → M.2W 08:55 → M.TBA-ER 08:55 → M.2W 13:00 → M.ICU 03-23 14:50 → M.2W 03-23 17:19
PROVIDERS: Family Medicine; Physician Assistant; Urology; ADMIT Internal Medicine
PROC: 0TC68ZZ Extirpation of Matter from Right Ureter, Via Natural or Artificial Opening Endoscopic (ICD-10-PCS; principal; 2018-03-23)
PROC: 0T9B8ZX Drainage of Bladder, Via Natural or Artificial Opening Endoscopic, Diagnostic (ICD-10-PCS; principal; 2018-03-23)
PROC: BT1B1ZZ Fluoroscopy of Bladder and Urethra using Low Osmolar Contrast (ICD-10-PCS; principal; 2018-03-23)
PROC: 0T768DZ Dilation of Right Ureter with Intraluminal Device, Via Natural or Artificial Opening Endoscopic (ICD-10-PCS; principal; 2018-03-23)
DX: N20.2 Calculus of kidney with calculus of ureter (principal); J98.11 Atelectasis; J96.10 Chronic respiratory failure, unspecified whether with hypoxia or hypercapnia; R00.1 Bradycardia, unspecified; I95.9 Hypotension, unspecified; N40.0 Benign prostatic hyperplasia without lower urinary tract symptoms; K21.9 Gastro-esophageal reflux disease without esophagitis; N20.0 Calculus of kidney; E78.5 Hyperlipidemia, unspecified; I12.9 Hypertensive chronic kidney disease with stage 1 through stage 4 chronic kidney disease, or unspecified chronic kidney disease; E11.22 Type 2 diabetes mellitus with diabetic chronic kidney disease; I20.8 Other forms of angina pectoris; N32.9 Bladder disorder, unspecified; E78.00 Pure hypercholesterolemia, unspecified; Z96.659 Presence of unspecified artificial knee joint; K59.00 Constipation, unspecified; N18.3 Chronic kidney disease, stage 3 (moderate); Z79.899 Other long term (current) drug therapy; Z79.82 Long term (current) use of aspirin; Z90.49 Acquired absence of other specified parts of digestive tract; Z98.49 Cataract extraction status, unspecified eye